=== PATIENT | female | born 1940 | race Caucasian/White ===

== ENCOUNTER 2025-04-27 11:32 | Inpatient (IN) | payer MEDICARE, OTHER ==
[2025-04-27] MEDS: Ondansetron 4 MG/2 ML SDV IVPUSH ONE (11:56)
[2025-04-27] MEDS: Ondansetron 4 MG/2 ML SDV ONE (12:01)
[2025-04-27 12:10] LABS: BASOPHILS ABSOLUTE AUTO 0.05 K/uL (0.00-0.20); BASOPHILS PERCENT AUTO 0.7 % (0.0-1.0); EOSINOPHILS ABSOLUTE AUTO 0.14 K/uL (0.00-0.45); EOSINOPHILS PERCENT AUTO 1.8 % (0.0-6.0); IMMATURE GRAN ABSOLUTE AUTO 0.02 K/uL (0.00-0.05); IMMATURE GRAN PERCENT AUTO 0.3 % (0.0-0.4); LYMPHOCYTES ABSOLUTE AUTO 1.93 K/uL (1.00-4.80); LYMPHOCYTES PERCENT AUTO 25.3 % (24.0-44.0); MEAN PLATELET VOLUME 10.0 fL (9.4-12.3); MONOCYTES ABSOLUTE AUTO 0.53 K/uL (0.00-0.80); MONOCYTES PERCENT AUTO 7.0 % (0.0-8.0); NEUTROPHILS ABSOLUTE AUTO 4.95 K/uL (1.80-7.70); NEUTROPHILS PERCENT AUTO 64.9 % (41.0-71.0); NRBC ABSOLUTE 0.00 K/uL (0.00-0.02); NRBC PERCENT 0.0 /100WBC (0.0-0.2); PLATELET COUNT,PLT 112 K/uL (150-400); RED BLOOD CELL COUNT 3.34 M/uL (4.10-5.30); WHITE BLOOD CELL COUNT,WBC 7.62 K/uL (3.9-11.3)
[2025-04-27 12:41] LABS: INR 1.3 (0.86-1.11)
[2025-04-27 12:48] LABS: A/G RATIO 1.0 (0.9-1.6); ALANINE AMINOTRANSFERASE,ALT 20.0 IU/L (14-63); ASPARTATE AMNIOTRANSFERASE,AST 24.0 IU/L (15-37); BILIRUBIN TOTAL 0.7 mg/dL (0.2-1.0); BLOOD UREA NITROGEN,BUN 26.0 mg/dL (7.0-18.0); CARBON DIOXIDE,CO2 25.2 mmol/L (21.0-32.0); CHLORIDE,CL 104.0 mmol/L (98-107); CREATININE 0.9 mg/dL (0.6-1.0); EST CRCL DRUG DOSING (CG) 38.56 mL/min; ESTIMATED GFR 62.0 mL/min (>60); GLUCOSE RANDOM 150.0 mg/dL (74-106); POTASSIUM,K 3.9 mmol/L (3.5-5.1); PROTEIN TOTAL,TP 6.5 g/dL (6.4-8.2); SODIUM,NA 138.0 mmol/L (136-145)
[2025-04-27] MEDS ORDERED: Sodium Chloride 0.9% 10 ML Syringe FLUSH PRN (14:29)
[2025-04-27] MEDS ORDERED: Sodium Chloride 0.9% 2.5 ML Syringe FLUSH PRN (14:29)
[2025-04-27] MEDS ORDERED: Naloxone 0.4 MG/ML SDV IVPUSH PRN (14:31)
[2025-04-27] MEDS ORDERED: Ropivacaine 49.25 ML, Ketorolac 30 MG, EPINEPHrine 0.5 MG, cloNIDine 80 MCG in Sodium C... INJECT SCH (15:15)
[2025-04-27] MEDS: Ondansetron 4 MG/2 ML SDV IVPUSH PRN (22:09)
[2025-04-28 05:39] LABS: BASOPHILS ABSOLUTE AUTO 0.03 K/uL (0.00-0.20); BASOPHILS PERCENT AUTO 0.5 % (0.0-1.0); EOSINOPHILS ABSOLUTE AUTO 0.01 K/uL (0.00-0.45); EOSINOPHILS PERCENT AUTO 0.2 % (0.0-6.0); IMMATURE GRAN ABSOLUTE AUTO 0.01 K/uL (0.00-0.05); IMMATURE GRAN PERCENT AUTO 0.2 % (0.0-0.4); LYMPHOCYTES ABSOLUTE AUTO 2.12 K/uL (1.00-4.80); LYMPHOCYTES PERCENT AUTO 33.2 % (24.0-44.0); MEAN PLATELET VOLUME 10.7 fL (9.4-12.3); MONOCYTES ABSOLUTE AUTO 0.67 K/uL (0.00-0.80); MONOCYTES PERCENT AUTO 10.5 % (0.0-8.0); NEUTROPHILS ABSOLUTE AUTO 3.55 K/uL (1.80-7.70); NEUTROPHILS PERCENT AUTO 55.4 % (41.0-71.0); NRBC ABSOLUTE 0.00 K/uL (0.00-0.02); NRBC PERCENT 0.0 /100WBC (0.0-0.2); PLATELET COUNT,PLT 104 K/uL (150-400); RED BLOOD CELL COUNT 2.73 M/uL (4.10-5.30); WHITE BLOOD CELL COUNT,WBC 6.39 K/uL (3.9-11.3)
[2025-04-28 05:55] LABS: BLOOD UREA NITROGEN,BUN 30.0 mg/dL (7.0-18.0); CARBON DIOXIDE,CO2 27.9 mmol/L (21.0-32.0); CHLORIDE,CL 105.0 mmol/L (98-107); CREATININE 0.9 mg/dL (0.6-1.0); EST CRCL DRUG DOSING (CG) 38.75 mL/min; GLUCOSE RANDOM 130.0 mg/dL (74-106); POTASSIUM,K 4.4 mmol/L (3.5-5.1); SODIUM,NA 140.0 mmol/L (136-145)
[2025-04-28 05:56] LABS: ESTIMATED GFR 62.0 mL/min (>60)
[2025-04-28] MEDS ORDERED: Naloxone 0.4 MG/ML SDV IVPUSH PRN (08:15)
[2025-04-28] MEDS ORDERED: Ondansetron 4 MG/2 ML SDV IVPUSH PRN (08:15)
[2025-04-28] MEDS ORDERED: fentaNYL 50 MCG/ML SDV IVPUSH PRN (08:15)
[2025-04-28] MEDS ORDERED: Albuterol 0.083% 2.5 MG/3 ML Neb Soln NEB PRN (08:15)
[2025-04-28 08:20] LABS: IMMATURE RETIC FRACTION 8.3 %; RED BLOOD CELL COUNT 2.68 M/uL (4.10-5.30); RETICULOCYTE ABSOLUTE 0.033 K/uL (0.02-0.11); RETICULOCYTE COUNT PERCENT 1.23 % (0.5-2.0)
[2025-04-28 08:25] LABS: IRON,FE 28.0 ug/dL (50-175); PERCENT FE SATURATION 17.39 % (20-55)
[2025-04-28 09:41] LABS: FOLIC ACID 20.4 ng/mL (8.60-58.90)
[2025-04-28] MEDS: Sodium Ferric Gluconate Cmplex 125 MG in Sodium Chloride 0.9% 100 ML IV SCH (10:10)
[2025-04-28] MEDS: ceFAZolin 2 GM in Water For Injection, Sterile 20 ML IVPUSH ONE (11:38)
[2025-04-28] MEDS ORDERED: Ropivacaine 49.25 ML, Ketorolac 30 MG, EPINEPHrine 0.5 MG, cloNIDine 80 MCG in Sodium C... INJECT SCH (12:00)
[2025-04-28] MEDS ORDERED: ePHEDrine 50 MG/ML SDV ONE (12:43)
[2025-04-28] MEDS ORDERED: Ondansetron 4 MG/2 ML SDV ONE (12:44)
[2025-04-28] MEDS ORDERED: Propofol 200 MG/20 ML SDV ONE ×2 (12:44→13:04)
[2025-04-28] MEDS ORDERED: Calcium Gluconate 10% 1 GM/10 ML SDV ONE (13:27)
[2025-04-28] MEDS: ceFAZolin 2 GM in Water For Injection, Sterile 20 ML IVPUSH SCH (21:15)
[2025-04-29 06:24] LABS: BASOPHILS ABSOLUTE AUTO 0.03 K/uL (0.00-0.20); BASOPHILS PERCENT AUTO 0.4 % (0.0-1.0); EOSINOPHILS ABSOLUTE AUTO 0.02 K/uL (0.00-0.45); EOSINOPHILS PERCENT AUTO 0.3 % (0.0-6.0); IMMATURE GRAN ABSOLUTE AUTO 0.03 K/uL (0.00-0.05); IMMATURE GRAN PERCENT AUTO 0.4 % (0.0-0.4); LYMPHOCYTES ABSOLUTE AUTO 1.87 K/uL (1.00-4.80); LYMPHOCYTES PERCENT AUTO 26.2 % (24.0-44.0); MEAN PLATELET VOLUME 10.4 fL (9.4-12.3); MONOCYTES ABSOLUTE AUTO 0.82 K/uL (0.00-0.80); MONOCYTES PERCENT AUTO 11.5 % (0.0-8.0); NEUTROPHILS ABSOLUTE AUTO 4.36 K/uL (1.80-7.70); NEUTROPHILS PERCENT AUTO 61.2 % (41.0-71.0); NRBC ABSOLUTE 0.00 K/uL (0.00-0.02); NRBC PERCENT 0.0 /100WBC (0.0-0.2); PLATELET COUNT,PLT 74 K/uL (150-400); RED BLOOD CELL COUNT 2.30 M/uL (4.10-5.30); WHITE BLOOD CELL COUNT,WBC 7.13 K/uL (3.9-11.3)
[2025-04-29 06:41] LABS: BLOOD UREA NITROGEN,BUN 26.0 mg/dL (7.0-18.0); CARBON DIOXIDE,CO2 27.2 mmol/L (21.0-32.0); CHLORIDE,CL 103.0 mmol/L (98-107); CREATININE 1.3 mg/dL (0.6-1.0); EST CRCL DRUG DOSING (CG) 26.82 mL/min; GLUCOSE RANDOM 137.0 mg/dL (74-106); POTASSIUM,K 4.1 mmol/L (3.5-5.1); SODIUM,NA 136.0 mmol/L (136-145)
[2025-04-29 06:57] LABS: ESTIMATED GFR 40.0 mL/min (>60)
[2025-04-30 06:02] LABS: BASOPHILS ABSOLUTE AUTO 0.03 K/uL (0.00-0.20); BASOPHILS PERCENT AUTO 0.4 % (0.0-1.0); EOSINOPHILS ABSOLUTE AUTO 0.05 K/uL (0.00-0.45); EOSINOPHILS PERCENT AUTO 0.7 % (0.0-6.0); IMMATURE GRAN ABSOLUTE AUTO 0.06 K/uL (0.00-0.05); IMMATURE GRAN PERCENT AUTO 0.8 % (0.0-0.4); LYMPHOCYTES ABSOLUTE AUTO 1.67 K/uL (1.00-4.80); LYMPHOCYTES PERCENT AUTO 22.4 % (24.0-44.0); MEAN PLATELET VOLUME 10.9 fL (9.4-12.3); MONOCYTES ABSOLUTE AUTO 0.82 K/uL (0.00-0.80); MONOCYTES PERCENT AUTO 11.0 % (0.0-8.0); NEUTROPHILS ABSOLUTE AUTO 4.82 K/uL (1.80-7.70); NEUTROPHILS PERCENT AUTO 64.7 % (41.0-71.0); NRBC ABSOLUTE 0.00 K/uL (0.00-0.02); NRBC PERCENT 0.0 /100WBC (0.0-0.2); PLATELET COUNT,PLT 68 K/uL (150-400); RED BLOOD CELL COUNT 2.45 M/uL (4.10-5.30); WHITE BLOOD CELL COUNT,WBC 7.45 K/uL (3.9-11.3)
[2025-04-30 06:16] LABS: BLOOD UREA NITROGEN,BUN 20.0 mg/dL (7.0-18.0); CARBON DIOXIDE,CO2 29.7 mmol/L (21.0-32.0); CHLORIDE,CL 104.0 mmol/L (98-107); CREATININE 1.0 mg/dL (0.6-1.0); EST CRCL DRUG DOSING (CG) 34.87 mL/min; GLUCOSE RANDOM 113.0 mg/dL (74-106); POTASSIUM,K 4.0 mmol/L (3.5-5.1); SODIUM,NA 141.0 mmol/L (136-145)
[2025-04-30 06:23] LABS: ESTIMATED GFR 55.0 mL/min (>60)
[2025-05-01 06:21] LABS: BASOPHILS ABSOLUTE AUTO 0.04 K/uL (0.00-0.20); BASOPHILS PERCENT AUTO 0.6 % (0.0-1.0); EOSINOPHILS ABSOLUTE AUTO 0.15 K/uL (0.00-0.45); EOSINOPHILS PERCENT AUTO 2.3 % (0.0-6.0); IMMATURE GRAN ABSOLUTE AUTO 0.04 K/uL (0.00-0.05); IMMATURE GRAN PERCENT AUTO 0.6 % (0.0-0.4); LYMPHOCYTES ABSOLUTE AUTO 1.55 K/uL (1.00-4.80); LYMPHOCYTES PERCENT AUTO 23.8 % (24.0-44.0); MEAN PLATELET VOLUME 10.5 fL (9.4-12.3); MONOCYTES ABSOLUTE AUTO 0.59 K/uL (0.00-0.80); MONOCYTES PERCENT AUTO 9.1 % (0.0-8.0); NEUTROPHILS ABSOLUTE AUTO 4.13 K/uL (1.80-7.70); NEUTROPHILS PERCENT AUTO 63.6 % (41.0-71.0); NRBC ABSOLUTE 0.02 K/uL (0.00-0.02); NRBC PERCENT 0.3 /100WBC (0.0-0.2); PLATELET COUNT,PLT 88 K/uL (150-400); RED BLOOD CELL COUNT 2.77 M/uL (4.10-5.30); WHITE BLOOD CELL COUNT,WBC 6.50 K/uL (3.9-11.3)
[2025-05-01 07:08] LABS: A/G RATIO 0.8 (0.9-1.6); ALANINE AMINOTRANSFERASE,ALT 10.0 IU/L (14-63); ASPARTATE AMNIOTRANSFERASE,AST 37.0 IU/L (15-37); BILIRUBIN TOTAL 0.6 mg/dL (0.2-1.0); BLOOD UREA NITROGEN,BUN 17.0 mg/dL (7.0-18.0); CARBON DIOXIDE,CO2 26.9 mmol/L (21.0-32.0); CHLORIDE,CL 106.0 mmol/L (98-107); CREATININE 1.0 mg/dL (0.6-1.0); EST CRCL DRUG DOSING (CG) 34.87 mL/min; GLUCOSE RANDOM 132.0 mg/dL (74-106); POTASSIUM,K 3.6 mmol/L (3.5-5.1); PROTEIN TOTAL,TP 5.5 g/dL (6.4-8.2); SODIUM,NA 142.0 mmol/L (136-145)
[2025-05-01 07:09] LABS: ESTIMATED GFR 55.0 mL/min (>60)
[2025-05-01] MEDS: Lactulose Soln 10 GM/15 ML 15 ML UD Cup PO ONE (10:21)
[2025-05-02 06:22] LABS: BASOPHILS ABSOLUTE AUTO 0.02 K/uL (0.00-0.20); BASOPHILS PERCENT AUTO 0.3 % (0.0-1.0); EOSINOPHILS ABSOLUTE AUTO 0.20 K/uL (0.00-0.45); EOSINOPHILS PERCENT AUTO 3.2 % (0.0-6.0); IMMATURE GRAN ABSOLUTE AUTO 0.04 K/uL (0.00-0.05); IMMATURE GRAN PERCENT AUTO 0.6 % (0.0-0.4); LYMPHOCYTES ABSOLUTE AUTO 1.27 K/uL (1.00-4.80); LYMPHOCYTES PERCENT AUTO 20.1 % (24.0-44.0); MEAN PLATELET VOLUME 10.1 fL (9.4-12.3); MONOCYTES ABSOLUTE AUTO 0.60 K/uL (0.00-0.80); MONOCYTES PERCENT AUTO 9.5 % (0.0-8.0); NEUTROPHILS ABSOLUTE AUTO 4.18 K/uL (1.80-7.70); NEUTROPHILS PERCENT AUTO 66.3 % (41.0-71.0); NRBC ABSOLUTE 0.00 K/uL (0.00-0.02); NRBC PERCENT 0.0 /100WBC (0.0-0.2); PLATELET COUNT,PLT 109 K/uL (150-400); RED BLOOD CELL COUNT 2.97 M/uL (4.10-5.30); WHITE BLOOD CELL COUNT,WBC 6.31 K/uL (3.9-11.3)
[2025-05-02 06:45] LABS: BLOOD UREA NITROGEN,BUN 19.0 mg/dL (7.0-18.0); CARBON DIOXIDE,CO2 29.3 mmol/L (21.0-32.0); CHLORIDE,CL 104.0 mmol/L (98-107); CREATININE 0.9 mg/dL (0.6-1.0); EST CRCL DRUG DOSING (CG) 38.75 mL/min; GLUCOSE RANDOM 130.0 mg/dL (74-106); POTASSIUM,K 4.1 mmol/L (3.5-5.1); SODIUM,NA 139.0 mmol/L (136-145)
[2025-05-02 06:48] LABS: ESTIMATED GFR 62.0 mL/min (>60)
[2025-05-02] MEDS: Lactulose Soln 10 GM/15 ML 15 ML UD Cup PO SCH (11:22)
[2025-05-03 05:58] LABS: BASOPHILS ABSOLUTE AUTO 0.04 K/uL (0.00-0.20); BASOPHILS PERCENT AUTO 0.6 % (0.0-1.0); EOSINOPHILS ABSOLUTE AUTO 0.11 K/uL (0.00-0.45); EOSINOPHILS PERCENT AUTO 1.5 % (0.0-6.0); IMMATURE GRAN ABSOLUTE AUTO 0.02 K/uL (0.00-0.05); IMMATURE GRAN PERCENT AUTO 0.3 % (0.0-0.4); LYMPHOCYTES ABSOLUTE AUTO 1.76 K/uL (1.00-4.80); LYMPHOCYTES PERCENT AUTO 24.4 % (24.0-44.0); MEAN PLATELET VOLUME 9.9 fL (9.4-12.3); MONOCYTES ABSOLUTE AUTO 0.67 K/uL (0.00-0.80); MONOCYTES PERCENT AUTO 9.3 % (0.0-8.0); NEUTROPHILS ABSOLUTE AUTO 4.61 K/uL (1.80-7.70); NEUTROPHILS PERCENT AUTO 63.9 % (41.0-71.0); NRBC ABSOLUTE 0.00 K/uL (0.00-0.02); NRBC PERCENT 0.0 /100WBC (0.0-0.2); PLATELET COUNT,PLT 114 K/uL (150-400); RED BLOOD CELL COUNT 2.96 M/uL (4.10-5.30); WHITE BLOOD CELL COUNT,WBC 7.21 K/uL (3.9-11.3)
[2025-05-03 06:26] LABS: BLOOD UREA NITROGEN,BUN 14.0 mg/dL (7.0-18.0); CARBON DIOXIDE,CO2 31.1 mmol/L (21.0-32.0); CHLORIDE,CL 104.0 mmol/L (98-107); CREATININE 0.8 mg/dL (0.6-1.0); EST CRCL DRUG DOSING (CG) 43.59 mL/min; ESTIMATED GFR 72.0 mL/min (>60); GLUCOSE RANDOM 107.0 mg/dL (74-106); POTASSIUM,K 4.6 mmol/L (3.5-5.1); SODIUM,NA 139.0 mmol/L (136-145)
== END 2025-05-03 13:35 | disposition home or self-care (01) | DRG 481 ==
LOC: MW.ED 11:32 → MW.MS 13:07
PROVIDERS: ADMIT Internal Medicine; ATTEND Internal Medicine
PROC: 0QS606Z Reposition Right Upper Femur with Intramedullary Internal Fixation Device, Open Approach (ICD-10-PCS; principal; 2025-04-27)
PROC: 30233N1 Transfusion of Nonautologous Red Blood Cells into Peripheral Vein, Percutaneous Approach (ICD-10-PCS; 2025-04-27)
DX: S72.141A Displaced intertrochanteric fracture of right femur, initial encounter for closed fracture (principal); I10 Essential (primary) hypertension; I50.32 Chronic diastolic (congestive) heart failure; F17.200 Nicotine dependence, unspecified, uncomplicated; W10.9XXA Fall (on) (from) unspecified stairs and steps, initial encounter; I25.10 Atherosclerotic heart disease of native coronary artery without angina pectoris; I11.0 Hypertensive heart disease with heart failure; D69.6 Thrombocytopenia, unspecified; D63.8 Anemia in other chronic diseases classified elsewhere; E78.00 Pure hypercholesterolemia, unspecified; E86.0 Dehydration; K21.9 Gastro-esophageal reflux disease without esophagitis; E11.9 Type 2 diabetes mellitus without complications; Z90.49 Acquired absence of other specified parts of digestive tract; Z90.710 Acquired absence of both cervix and uterus; Z88.0 Allergy status to penicillin; Z98.890 Other specified postprocedural states; Z87.891 Personal history of nicotine dependence; Z79.899 Other long term (current) drug therapy; Z96.659 Presence of unspecified artificial knee joint
CPT/HCPCS: 36415; 70450; 71045; 72125; 72192; 80053; 83036; 85025; 85610; 96374; 99285; J2405; 36430; 80048; 82607; 82728; 82746; 82947; 83550; 83735; 85045; 86850; 86900; 86901; 86920; 93005; 97110-GP; 97116-GP; 97162-GP; 97165-GO; 97530-GP; 99284; A9270-GY; C1713; C1769; J0612; J0690; J2003; J2270; J2371; J2704; J2916; J3490; J7030; P9016